=== PATIENT | male | born 2000 | race Two or more races ===

== ENCOUNTER 2024-12-20 12:38 | Observation (INO) | payer SELFPAY ==
[2024-12-20] VITALS (14 sets, daily range): BP systolic 105–144; BP diastolic 50–85; PULSE 58–95; RESP 16–22; TEMP 36.3–37.2; O2SAT 97–100; BMI 25.2
--- NOTE | 2024-12-20 13:43 | PD.EDRME ---
Rapid Medical Screening Exam [facility] Arrival date/time: 12/20/24 12:38 This is a 24-year-old male that comes into the emergency room with complaints of abdominal pain right lower quadrant that started this morning. Patient states it woke him up from sleep. Patient denies past medical history. Patient denies fever, nausea, vomiting, diarrhea. I have greeted and performed a focused initial assessment of this patient. Initial appropriate labs ordered at this time. A comprehensive ED assessment and evaluation of the patient and analysis of all test and completion of medical decision making process will be conducted by additional ED provider. Chief Complaint: Abdominal Pain Time Seen by Provider: 12/20/24 12:55 Vital signs: Vital Signs Temperature 98.7 F 12/20/24 12:51 Pulse Rate 70 12/20/24 12:51 Respiratory Rate 18 12/20/24 12:51 Blood Pressure 119/76 12/20/24 12:51 Pulse Oximetry (%) 100 12/20/24 12:51 Oxygen Delivery Method Room Air 12/20/24 12:51
[2024-12-20 13:56] LABS: Collection Type, Urine Voided; Squamous Epithelial Cell,Urine 0 /hpf (0-5)
[2024-12-20 14:02] LABS: Bilirubin,Urine Negative (Negative); Blood,Urine Negative (Negative); Clarity,Urine Clear (Clear/Hazy); Color,Urine Yellow (Lt Yel-Yel); Culture Indicated,Urine Not Indicated; Glucose, Urine Negative (Negative); Ketones,Urine Negative (Negative); Leukocyte Esterase,Urine Negative (Negative); Nitrite,Urine Negative (Negative); PH,Urine 6.5 (5.0-7.0); Protein,Urine Trace (Neg - Trace); RBC,Urine 7 /hpf (0-3); Specific Gravity,Urine 1.035 (1.001-1.035); Urobilinogen,Urine Negative mg/dL (0.0-1.0); WBC,Urine 2 /hpf (0-5)
[2024-12-20 14:09] LABS: Amphetamine/Methamp Scrn,U Negative (Negative); Barbiturate Screen,Urine Negative (Negative); Benzodiazepines Screen,Urine Negative (Negative); Benzoylecgonine Screen, Ur Negative (Negative); Fentanyl Screen,Urine Negative (Negative); Opiate Screen,Urine Negative (Negative); THC Screen,Urine Negative (Negative)
[2024-12-20 14:19] LABS: Basophils # (Auto) 0.0 Thou/mm3 (0.0-0.2); Basophils % (Auto) 0 % (0-2.5); Eosinophils # (Auto) 0.2 Thou/mm3 (0.0-0.5); Eosinophils % (Auto) 1 % (0-10); Hematocrit 43.5 % (41.0-53.0); Hemoglobin 15.1 g/dL (13.5-16.0); Immature Granulocytes Auto 0.04 Thou/mm3 (0.00-0.00); Lymphocytes # (Auto) 1.1 Thou/mm3 (1.0-4.8); Lymphocytes % (Auto) 9 % (10-50); Mean Corpuscular HGB Conc 34.7 g/dl (31.0-37.0); Mean Corpuscular Hemoglobin 29.7 pg (25.0-35.0); Mean Corpuscular Volume 86 fL (80-100); Monocytes # (Auto) 0.7 Thou/mm3 (0.0-0.8); Monocytes % (Auto) 6 % (0-12); Neutrophils # (Auto) 10.1 Thou/mm3 (1.8-7.7); Neutrophils % (Auto) 84 % (37-80); Nucleated Red Blood Cell # 0.00 Thou/mm3 (0.00-0.00); Nucleated Red Blood Cell % 0 /100 WBC (0); Platelet Count 286 Thou/mm3 (140-440); RDW Standard Deviation 38.5 fL (35.1-43.9); Red Blood Count 5.09 Miln/mm3 (4.50-5.90); White Blood Count 12.1 Thou/mm3 (3.8-10.6)
[2024-12-20 14:39] LABS: Alanine Aminotransferase 13 U/L (10-49); Albumin, Serum 4.9 gm/dL (3.5-5.0); Albumin/Globulin Ratio 1.5 (1.2-2.2); Alkaline Phosphatase 101 U/L (46-116); Anion Gap 9 (7-16); Aspartate Amino Transferase 18 U/L (0-34); BUN/Creatinine Ratio 9 Ratio (12-20); Bilirubin,Total 0.9 mg/dL (0.3-1.2); Blood Urea Nitrogen 9 mg/dL (9-23); Calcium 9.3 mg/dL (8.3-10.6); Calcium (Corrected) 9.3 mg/dL (8.5-10.1); Carbon Dioxide 29.7 mMol/L (20.0-31.0); Chloride 103 mMol/L (98-107); Creatinine (Component) 1.0 mg/dL (0.6-1.3); Estimated Creatinine Clearance 119.6 mL/min (>60); Globulin 3.2 gm/dL (2.3-3.5); Glucose 92 mg/dL (74-106); Lipase 30 U/L (12-53); Osmolality,Calculated 281 (275-295); Potassium 4.3 mMol/L (3.4-5.1); Sodium 142 mMol/L (136-145); Total Protein 8.1 gm/dL (5.7-8.2); eGFR > 60 See Note
--- NOTE | 2024-12-20 15:01 | XR_ITS ---
Examination: CT abdomen with intravenous contrast CT pelvis with intravenous contrast 2-D coronal reconstructions 2-D sagittal reconstructions Date and time of exam: December 20, 2024, 1546 hrs. CTDI: vol (mGy) 7.18. DLP: (mGycm) 396. Technique: Multiple axial sections of the abdomen and pelvis have been obtained. 64 slice high-resolution scanner used. 3 mm axial sections have been obtained, post intravenous injection 60 cc Isovue-370. 2-D sagittal, coronal reconstructions obtained. Low dose protocols were performed. One or more of the following dose reduction techniques were used; automated exposure control, adjustment of the mA and/or KV according to patient size, use of iterative reconstruction technique. Findings: No focal liver or splenic lesion No gallstones No pancreatic mass. No renal or ureteral calculi, no hydronephrosis Pericecal inflammatory change Tubular enlarged inflamed structure medial to the cecum, axial images 116 through 149 consistent with acute appendicitis Mild free fluid in the pelvis No pelvic abscess Impression: Findings most consistent with acute appendicitis, the appearance should be clinically correlated. No pelvic abscess
--- NOTE | 2024-12-20 15:04 | PD.EDABDPN ---
ED Abdominal Pain RME/HPI General Chief Complaint: Abdominal Pain Stated complaint: SHARP RLQ ABD PAIN Time seen by provider: 12/20/24 12:55 Arrival date/time: 12/20/24 12:38 Source: patient Mode of arrival: ambulatory Limitations: no limitations RME / HPI RME / HPI narrative: 24-year-old male is here today with acute right lower quadrant pain. He describes this as a sharp pain without radiation. He has no back pain. Denies any nausea or vomiting. Has no change in bowel movements. Denies any urinary frequency or testicle pain. He has no fevers or chills. He states he has not had this before. He has no chronic medical illness. He has no drug allergies. He denies any past surgeries. He has no other acute complaints or concerns. Related Data Allergies Allergy/AdvReac Type Severity Reaction Status Date / Time No Known Allergies Allergy Verified 12/20/24 12:41 Review of Systems Review of Systems Systems Reviewed: All systems reviewed, normal except as documented ED Exam General Limitations: Present no limitations General appearance: Present alert and in no apparent distress Head Head exam: Present atraumatic Eye Eye exam: Present normal appearance, PERRL and EOMI ENT ENT exam: Present normal exam, normal oropharynx and mucous membranes moist Neck Neck exam: Present normal inspection, full ROM and trachea midline Chest Chest inspection: Present normal inspection and symmetric chest wall rise Respiratory Respiratory exam: Present normal lung sounds bilaterally Cardiovascular Cardiovascular exam: Present regular rate, normal rhythm and normal heart sounds Abdominal Exam Abdominal exam: Present soft and other (He is point tender in the right lower quadrant with mild rebound tenderness) Extremities Exam Extremities exam: Present normal inspection and full ROM Back Exam Back exam: Present normal inspection and full ROM; Absent CVA tenderness (R) or CVA tenderness (L) Neurological Exam Neurological exam: Present alert and oriented X3 Psychiatric Psychiatric exam: Present normal affect and normal mood Skin Skin exam: Present warm, dry, intact and normal color Course Course Course Narrative: CT report read, radiologist reports findings consistent with acute appendicitis. Dr. Au with general surgery paged at 1645 PM. Patient evaluated by Dr. Au at 17:15. Quality Measures none Orders Category Date Time Status COVID-19 Screening Questionnaire NOW Care 12/20/24 17:[address] Screening NOW Care 12/20/24 15:01 Active Decision to Admit X1 Care 12/20/24 17:[address] abdomen pelvis w con Stat Exams 12/20/24 15:01 Completed CBC Stat Lab 12/20/24 14:04 Completed Comprehensive Metabolic Panel Stat Lab 12/20/24 14:04 Completed Drug Screen,Urine Stat Lab 12/20/24 13:45 Completed Lipase Stat Lab 12/20/24 14:04 Completed Urinalysis, C/S if Indicated Stat Lab 12/20/24 13:45 Completed Piper/Tazo 3.375 gm Premix [Zosyn] Med 12/20/24 16:47 Discontinued 3.375 gm in 50 ml IV X1 Vital Signs Vital signs: Vital Signs Temperature 98.7 F 12/20/24 12:51 Pulse Rate 70 12/20/24 12:51 Respiratory Rate 18 12/20/24 12:51 Blood Pressure 119/76 12/20/24 12:51 Pulse Oximetry (%) 100 12/20/24 12:51 Oxygen Delivery Method Room Air 12/20/24 12:51 Abdominal Pain MDM MDM Narrative MDM Narrative:: 24-year-old male is here today with acute right lower quadrant pain. He describes this as a sharp pain without radiation. He has no back pain. Denies any nausea or vomiting. Has no change in bowel movements. Denies any urinary frequency or testicle pain. He has no fevers or chills. He states he has not had this before. He has no chronic medical illness. He has no drug allergies. He denies any past surgeries. He has no other acute complaints or concerns. On exam patient is nontoxic-appearing and in no visible signs distress. Vital signs are stable. He has no CVA tenderness. On abdominal exam, he has no masses. He is point tender in the right lower quadrant with mild rebound tenderness. He has no leukocytosis, metabolic panel is unremarkable. There are few erythrocytes in his urine. We discussed further workup including imaging studies to rule out ureter stone versus acute appendicitis. CT is obtained and there are concerns for possible appendicitis. Our general surgeon was contacted and see the patient in the ER. Dr. Au will take the patient to the OR. Patient data External records reviewed:: None Clinical information provided by:: patient Social determinants that could affect healthcare access:: none Patient has the following chronic illnesses:: n/a How is presenting disease/condition affected by chronic disease/condition?: no chronic disease Evaluation data The following diagnostics were reviewed and interpreted by me:: lab results (No leukocytosis or metabolic derangement) and radiology exam(s) (Radiologist reports findings concerning for possible appendicitis) Lab and/or radiology exams considered but not ordered:: n/a Interpretation Summary: Acute appendicitis Medications / Prescriptions Medications or Prescriptions considered but not ordered:: n/a Medication administrations:: Medication Administration History Discontinued Medications Piperacillin/Tazobactam/Dextrose (Zosyn) 3.375 gm in 50 mls @ 100 mls/hr IV X1 ONE Stop: 12/20/24 17:16 Last Admin: 12/20/24 16:59 Dose: 100 mls/hr Documented By: SM See above Consultations Consultation(s) initiated? (list below): Yes Diagnosis Differential diagnosis abdominal pain: abdominal pain, acute appendicitis, calculus of kidney, constipation and gastroenteritis Most likely diagnosis given after review of the tests above:: Acute appendicitis Admission Indicated Admission indicated?: indicated Admission Request Was there a request for admission?: Yes Admission Attestation Admission request attestation: Discussed case with [] from Hospitalist service regarding admission. Discussed patients ED course, exam findings, labs, and radiology results. The Hospitalist [agrees,declines] to accept the patient for admission. Disposition Plan Disposition Plan: Admit Discharge Plan Plan Patient Disposition: Admit Acute Care w/in Hospital Prescriptions/Referrals Referrals: Gabo Romeo MD [Primary Care Provider] - In 1 week Problem List Clinical Impression: Acute appendicitis Patient/Caregiver Discharge Instructions Print Language: Danish Stand Alone Forms: [facility] Award Info., Patient Portal Info Letter
--- NOTE | 2024-12-20 15:24 | PC.NURSE ---
PATIENT IN ROOM FOR FUTHER EVALUATION FOR RLQ PAIN. IV ESTABLISHED, CT SCREENING FORM COMPLETED. PATIENT WITH NO OTHER COMPLAINTS AT TIME OF ASSESSMENT.
[2024-12-20] MEDS: PIPER/TAZO 3.375 GM PREMIX 3.375 GM/50 ML BAG IV (16:59)
--- NOTE | 2024-12-20 17:15 | PC.NURSE ---
DR RILEY AT BEDSIDE TO EVALUATE PATIENT.
--- NOTE | 2024-12-20 17:33 | PD.SURHP ---
[facility] Date of Admission 12/20/2024 Chief Complaint Chief Complaint: Patient is admitted with a diagnosis of acute appendicitis HPI History of present illness revealed that the patient woke up with the pain in the right lower quadrant this morning. He could not even get out of bed because of the pain. He did not eat. He denied any nausea or vomiting. He has had no diarrhea. Had a normal bowel function yesterday. He has had no fever or chills. He has not experienced similar pain in the past. He denies any other major medical illness. Past Medical History Past Medical History NEUROLOGIC: Negative Seizures CARDIAC: Negative Cardiac Disorders or Congestive Heart Failure RESPIRATORY: Negative Chronic Obstructive Pulmonary Disease (COPD) or Asthma GENITOURINARY: Negative Renal Disease ENDOCRINE: Negative Diabetes Mellitus Type 1 or Diabetes Mellitus Type 2 HEMATOLOGIC: Negative Sickle Cell Disease OTHER HISTORY: Negative Blood Transfusions, Blood Transfusion Reaction or Anesthesia Reactions Social History SMOKING STATUS: Never smoker Meds Home Medications and Allergies Allergies Allergy/AdvReac Type Severity Reaction Status Date / Time No Known Allergies Allergy Verified 12/20/24 12:41 Exam Vital Signs Temp Pulse Resp BP Pulse Ox O2 Del Method 98.5 F 84 16 105/58 L 98 Room Air 12/20/24 16:57 12/20/24 16:57 12/20/24 16:57 12/20/24 16:57 12/20/24 16:57 12/20/24 16:57 Narrative Exam Physical examination revealed a well-built well-nourished male who speaks only Khmer he is 5 foot 10 inches tall weighing 175 pounds with BMI of 25.2. His vital signs are normal Routine Respiratory Exam Comments: Good breath sounds on both sides Routine Cardiovascular Exam Comments: Heart sinus rhythm Routine Abdominal Exam Comments: Examination abdomen showed some tenderness over the right flank about the McBurney's point. There is no rigidity or rebound tenderness bowel sounds are hypoactive Routine Rectal Exam Comments: Deferred Routine Exam Comments: Within normal limits Routine Extremities Exam Comments: Within normal limits Results Results: Laboratory Laboratory Narrative: Patient's laboratory workup showed mild leukocytosis with 12,500 with a shift to the left. Electrolytes are within normal limits Results: Imaging Imaging narrative: CT scan of the abdomen showed appendicitis Assessment & Plan Additional Assessment Additional comments: Impression: Acute appendicitis Plan Plan: I had a discussion with the patient using educational sign language interpreter I advised him to have the appendectomy performed. The procedure was explained to him in detail including the need for possible open appendectomy. He is agreeable. Patient has been started on Zosyn and he will be taken to the operating room as soon as possible Quality Measures Quality Measures none
[2024-12-20] MEDS: SODIUM CHLORIDE 0.9% 1000 ML 1,000 ML 500 ML IV (17:55)
--- NOTE | 2024-12-20 18:19 | PC.NURSE ---
REPORT GIVEN TO SURGERY RN, FAMILY AT BEDSIDE AND TAKING PATIENT BELONGINGS.
--- NOTE | 2024-12-20 19:27 | PD.SUROPNT ---
Date of Procedure 12/20/24 Pre Op Diagnosis Acute appendicitis Post Op Diagnosis Same with some inflammation around this midportion of the right colon Procedure Laparoscopic appendectomy Findings Patient is found to have long inflamed appendix with some exudate over the ascending colon and some omental adhesions the cause of which was not clear. Procedure Description After the patient was placed in supine position and anesthesia was administered with endotracheal intubation. Abdomen was prepped with ChloraPrep solution and draped in a sterile manner. A timeout was performed and a small incision was made just above the umbilicus. Fascia was cleaned and Veress needle was inserted to obtain a pneumoperitoneum up to 15 mmHg. Then I introduced a 12 mm trocar at the umbilicus with a 10 mm camera. Patient was kept in Trendelenburg position with the left lateral tilt. Intra-abdominal organs were visualized and this showed omentum covering the right lower quadrant. A 5 mm trocar was inserted in the right lower quadrant under direct vision and using a laparoscopic Marston I move the omentum and identified the appendix. Appendix was inflamed in its entire length and was located medial to the cecum. Another 5 mm trocar was inserted in the left lower quadrant under direct vision and using Harmonic josé I dissected the mesoappendix cauterizing the vessels. When the base of the appendix was reached this was stapled using an Endo cutter 35 power herminio. Then the appendix was retrieved through the Endopouch through the umbilical port. Then I found out some inflammatory adhesions of the omentum and the ascending colon. I explored this area but did not find any perforation or other inflammation. I thought that it may be secondary to appendicitis which was probably like there. Then after irrigating and cleaning the pelvis and the right lower quadrant all the trocars were pulled out and the pneumoperitoneum was let out. Fascia was closed with interrupted 0 Ethibond and then I injected half percent Marcaine with epinephrine for analgesia. Skin was then closed with interrupted 4-0 subcuticular Monocryl stitches and a Tegaderm dressing was applied. Patient tolerated the procedure well and returned to recovery room in stable condition. Anesthesia GETA Pathology / specimen Other (Appendix) IVF Infused 600 Estimated Blood Loss 10 Surgeon Gabrielle Au MD Surgical Staff Operation Date: 12/20/24 19:15 Case Staff Anesthesiologist: Daniel Galindo RNadjunct instructor of women's studies: Debra Cordon
--- NOTE | 2024-12-20 19:40 | SUR.PHASEI ---
pt received to [facility]. vss. breathing unlabored with oral airway in place, removed by dr mendoza on arrival. dressing cdi to abdomen x3. report from dr mendoza and nurse jun.
--- NOTE | 2024-12-20 20:20 | SUR.PHASEI ---
report to zeynep medina. vss. breathing even and unlabored. denies pain and nausea. dressings remain cdi. transported to room via rney.
[2024-12-20] MEDS: SODIUM CHLORIDE 0.9% 1000 ML 1,000 ML 125 ML IV (21:03)
[2024-12-20] MEDS: MORPHINE SULF INJ 10 MG/ML VIAL 4 MG IVP (21:03)
[2024-12-21] VITALS (7 sets, daily range): BP systolic 114–134; BP diastolic 50–76; PULSE 55–84; RESP 16–99; TEMP 36.2–36.6; O2SAT 96–98
[2024-12-21] MEDS: PIPER/TAZO 3.375 GM PREMIX 3.375 GM/50 ML BAG IV ×3 (00:59→13:45)
[2024-12-21] MEDS: SODIUM CHLORIDE 0.9% 1000 ML 1,000 ML 125 ML IV (03:25)
[2024-12-21 06:16] LABS: Basophils # (Auto) 0.0 Thou/mm3 (0.0-0.2); Basophils % (Auto) 0 % (0-2.5); Eosinophils # (Auto) 0.0 Thou/mm3 (0.0-0.5); Eosinophils % (Auto) 0 % (0-10); Hematocrit 41.5 % (41.0-53.0); Hemoglobin 14.1 g/dL (13.5-16.0); Immature Granulocytes Auto 0.05 Thou/mm3 (0.00-0.00); Lymphocytes # (Auto) 0.7 Thou/mm3 (1.0-4.8); Lymphocytes % (Auto) 7 % (10-50); Mean Corpuscular HGB Conc 34.0 g/dl (31.0-37.0); Mean Corpuscular Hemoglobin 29.8 pg (25.0-35.0); Mean Corpuscular Volume 88 fL (80-100); Monocytes # (Auto) 0.2 Thou/mm3 (0.0-0.8); Monocytes % (Auto) 2 % (0-12); Neutrophils # (Auto) 9.9 Thou/mm3 (1.8-7.7); Neutrophils % (Auto) 91 % (37-80); Nucleated Red Blood Cell # 0.00 Thou/mm3 (0.00-0.00); Nucleated Red Blood Cell % 0 /100 WBC (0); Platelet Count 307 Thou/mm3 (140-440); RDW Standard Deviation 38.9 fL (35.1-43.9); Red Blood Count 4.73 Miln/mm3 (4.50-5.90); White Blood Count 10.9 Thou/mm3 (3.8-10.6)
--- NOTE | 2024-12-21 14:09 | PD.SURPROG ---
Documentation for date of: 12/21/24 Subjective Subjective Brief History: History of present illness revealed that the patient woke up with the pain in the right lower quadrant this morning. He could not even get out of bed because of the pain. He did not eat. He denied any nausea or vomiting. He has had no diarrhea. Had a normal bowel function yesterday. He has had no fever or chills. He has not experienced similar pain in the past. He denies any other major medical illness. Narrative: Patient is feeling better. He is tolerating clear liquids Exam Vital Signs Temp Pulse Resp BP Pulse Ox O2 Del Method O2 Flow Rate 97.3 F 64 19 120/61 96 Room Air 8 12/21/24 12:00 12/21/24 12:00 12/21/24 12:00 12/21/24 12:00 12/21/24 12:00 12/21/24 12:00 12/20/24 19:45 His vital signs are normal Routine Abdominal Exam Comments: Abdominal examination is negative Results Results: Laboratory Laboratory Narrative: WBC is trending down Assessment & Plan Assessment Additional comments: Impression: Satisfactory recovery following appendectomy Plan Plan: We shall discharge the patient today and follow him up in my office next week. Because of the inflammation over the ascending colon I am prescribing him a week of antibiotics p.o. PROCEDURES: Procedures Laparoscopic appendectomy
--- NOTE | 2024-12-21 14:30 | PC.NURSE ---
Dr Lux in to see pt. Discharge orders placed, per MD, D/C pt this evening closer to surgery time yesterday.
[2024-12-21] MEDS: KETOROLAC INJ 30 MG/ML VIAL IVP (15:24)
== END 2024-12-21 18:34 | disposition home or self-care (01) ==
LOC: SERX 17:25 → SERHOLD 17:58 → S3SX 20:24
PROVIDERS: Nurse Practitioner Family; Admitting Provider Surgery; Emergency Provider Emergency Medicine; PCP Family Medicine; Referring Provider Emergency Medicine; Visit Provider Surgery
PROC: 0DTJ4ZZ Resection of Appendix, Percutaneous Endoscopic Approach (ICD-10-PCS; CPT 44970; principal; 2024-12-20 19:00)
DX: K35.80 Unspecified acute appendicitis (principal); K66.0 Peritoneal adhesions (postprocedural) (postinfection)
CPT/HCPCS: 44970; 36415; 74177; 80053; 80307; 81001; 83690; 85025; 96361; 96365; 96366; 96375; 99285; A4217; A4649; C1713; G0378; J1100; J1885; J2250; J2270; J2543; J2704; J2710; J3010; J3490; J7030; Q9967; J1596